=== PATIENT | female | born 1970 | race African-American/Black ===

== ENCOUNTER 2017-12-01 09:00 | Emergency (ER) | payer OTHER ==
[~2017-12-01] VITALS: Ht 162.6 cm; Wt 77.1 kg
[2017-12-01] MEDS ORDERED: NKM (09:05)
[2017-12-01] MEDS ORDERED: Ketorolac 60mg Inj IM ONE (09:15)
[2017-12-01] MEDS ORDERED: Norco 5mg/325mg tab ORAL ONE (09:15)
[2017-12-01 10:12] VITALS: BP 167/89
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
[2017-12-01 11:13] VITALS: BP 160/105
[2017-12-01] MEDS ORDERED: NORCO 5-325 TA1 EACH ORAL (11:15)
[2017-12-01] MEDS ORDERED: IBUPROFEN800 MG ORAL (11:15)
[2017-12-01] MEDS ORDERED: CYCLOBENZAPRINE10 MG ORAL (11:15)
[2017-12-01 11:18] VITALS: BP 160/105
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
== END 2017-12-01 11:18 | disposition home or self-care (01) ==
LOC: EDBD 09:00 → EMR 09:25
DX: S42.025A Nondisplaced fracture of shaft of left clavicle, initial encounter for closed fracture (principal); S13.4XXA Sprain of ligaments of cervical spine, initial encounter; V43.52XA Car driver injured in collision with other type car in traffic accident, initial encounter; Y92.410 Unspecified street and highway as the place of occurrence of the external cause
CPT/HCPCS: 71045; 96372; 99284